=== PATIENT | female | born 1950 | race African-American/Black ===

== ENCOUNTER 2020-10-13 07:02 | Inpatient (IN) | payer OTHER, MEDICAID ==
[~2020-10-13] VITALS: Ht 156.2 cm; Wt 73.0 kg
[2020-10-13] MEDS ORDERED: SODIUM CHLORIDE 0.9% 1,000 ML IV ONE (07:45)
[2020-10-13 10:12] LABS: BASOPHILS % 0.2 % (0.0-2.0); EOSINOPHILS % 0.4 % (0.0-5.0); HEMATOCRIT. 39.5 % (36.0-48.0); HEMOGLOBIN. 13.1 g/dL (12.0-16.0); LYMPHOCYTES % 12.9 % (20.0-50.0); MEAN CORPUSCULAR HEMOGLOBIN 30.4 pg (28.0-32.0); MEAN CORPUSCULAR VOLUME 92.1 fL (81.0-99.0); MEAN PLATELET VOLUME 8.9 fl (7.4-10.4); MONOCYTES % 5.8 % (2.0-8.0); NEUTROPHILS % 80.7 % (40.0-76.0); PLATELET 170 x1000/uL (130-400); RED BLOOD CELL COUNT 4.29 mill/uL (4.2-5.4); RED CELL DISTRIBUTION WIDTH 14.4 % (11.6-14.6)
[2020-10-13 10:19] LABS: CHLORIDE 107 mEq/L (98-107)
[2020-10-13 10:23] LABS: ETHANOL BLOOD < 10 mg/dL
[2020-10-13 10:39] LABS: CREATINE KINASE 1131 IU/L (26-192)
[2020-10-13] MEDS ORDERED: CLONIDINE 0.1MG TABLET PO PRN (11:45)
[2020-10-13] MEDS ORDERED: GUAIFENESIN 200MG/10ML SUGAR FREE UDC PO PRN (11:45)
[2020-10-13] MEDS ORDERED: DOCUSATE SODIUM 100MG CAPSULE PO PRN (11:45)
[2020-10-13] MEDS ORDERED: IPRATROPIUM/ALBUTEROL 0.5-3(2.5)MG/3ML NEB NEB PRN (11:45)
[2020-10-13] MEDS ORDERED: ONDANSETRON HCL 4MG/2ML INJ IV PRN (11:45)
[2020-10-13] MEDS ORDERED: SODIUM CHLORIDE 0.45% 1,000 ML IV SCH (11:45)
[2020-10-13] MEDS ORDERED: DIPHENHYDRAMINE 50MG/ML VIAL IV PRN (11:45)
[2020-10-13] MEDS ORDERED: LORAZEPAM 2MG/ML CPJ IV PRN (11:45)
[2020-10-13] MEDS ORDERED: MAGNESIUM/ALUMINUM HYDROXIDE/SIMETHICONE 30ML UDC PO PRN (11:45)
[2020-10-13] MEDS ORDERED: ACETAMINOPHEN 325MG TABLET PO PRN (11:45)
[2020-10-13] MEDS ORDERED: NA PHOS,M-B/NA PHOS,DI-BA ENEMA 118ML PR PRN (12:00)
[2020-10-13 12:39] LABS: CLARITY URINE CLEAR (CLEAR); COLOR URINE YELLOW (YELLOW); KETONES URINE NEGATIVE (NEGATIVE); LEUKOCYTE ESTERASE URINE 2+ (NEGATIVE); NITRITE URINE NEGATIVE (NEGATIVE); OCCULT BLOOD URINE NEGATIVE (NEGATIVE); PH URINE 6.5 (4.5-8.0); PROTEIN URINE NEGATIVE (NEGATIVE); SPECIFIC GRAVITY URINE 1.017 (1.005-1.030); UROBILINOGEN URINE 0.2 E.U./dL (0.2-1.0)
[2020-10-13] MEDS: ENOXAPARIN 40MG/0.4ML SYR SUBCUT SCH ×2 (12:55→13:07)
[2020-10-13] MEDS: MORPHINE SULFATE 2 MG/ML CPJ (NOT FOR IM USE) IV PRN ×2 (12:56→14:59)
[2020-10-13 14:27] LABS: PROTHROMBIN TIME 10.8 sec (9.6-11.0)
[2020-10-13 14:28] LABS: D-DIMER 1.15 mg/L FEU (<0.50)
[2020-10-13 14:30] LABS: C REACTIVE PROTEIN QUANT 2.9 mg/L (0.0-3.0)
[2020-10-13] MEDS: SODIUM CHLORIDE 0.9% 1,000 ML IV SCH (16:15)
[2020-10-13] MEDS: HYDROCODONE/ACETAMINOPHEN 5/325MG TABLET PO PRN (19:16)
[2020-10-13 23:47] LABS: CHLORIDE 111 mEq/L (98-107)
[2020-10-13 23:57] LABS: CREATINE KINASE MB FRACTION 10.3 ng/mL (0.5-3.6)
[2020-10-14] MEDS: MORPHINE SULFATE 2 MG/ML CPJ (NOT FOR IM USE) IV PRN ×4 (00:34→22:24)
[2020-10-14 04:12] LABS: EOSINOPHILS % 0.8 % (0.0-5.0); HEMATOCRIT. 36.4 % (36.0-48.0); HEMOGLOBIN. 12.1 g/dL (12.0-16.0); LYMPHOCYTES % 26.4 % (20.0-50.0); MEAN CORPUSCULAR HEMOGLOBIN 30.6 pg (28.0-32.0); MEAN CORPUSCULAR VOLUME 91.7 fL (81.0-99.0); MEAN PLATELET VOLUME 9.1 fl (7.4-10.4); MONOCYTES % 10.1 % (2.0-8.0); NEUTROPHILS % 61.7 % (40.0-76.0); PLATELET 185 x1000/uL (130-400); RED BLOOD CELL COUNT 3.97 mill/uL (4.2-5.4); RED CELL DISTRIBUTION WIDTH 14.4 % (11.6-14.6)
[2020-10-14 04:14] LABS: CHLORIDE 112 mEq/L (98-107)
[2020-10-14 04:22] LABS: LDL CHOLESTEROL 154 mg/dL (5-100)
[2020-10-14 04:23] LABS: CREATINE KINASE MB FRACTION 8.2 ng/mL (0.5-3.6); HDL CHOLESTEROL 65 mg/dL (40-59)
[2020-10-14 04:24] LABS: T4 FREE 1.05 ng/dL (0.76-1.46)
[2020-10-14] MEDS: SODIUM CHLORIDE 0.9% 1,000 ML IV SCH ×2 (08:44→18:59)
[2020-10-14] MEDS ORDERED: POTASSIUM CHLORIDE 20MEQ TABLET SR PO NR (12:30)
[2020-10-15] VITALS (8 sets, daily range): BP systolic 142–176; BP diastolic 65–84
[2020-10-15 00:43] LABS: T4 FREE 1.03 ng/dL (0.76-1.46)
[2020-10-15 04:55] LABS: BASOPHILS % 0.4 % (0.0-2.0); HEMATOCRIT. 36.1 % (36.0-48.0); HEMOGLOBIN. 11.9 g/dL (12.0-16.0); LYMPHOCYTES % 20.3 % (20.0-50.0); MEAN CORPUSCULAR HEMOGLOBIN 30.2 pg (28.0-32.0); MEAN CORPUSCULAR VOLUME 91.3 fL (81.0-99.0); MEAN PLATELET VOLUME 9.1 fl (7.4-10.4); MONOCYTES % 11.3 % (2.0-8.0); PLATELET 181 x1000/uL (130-400); RED BLOOD CELL COUNT 3.95 mill/uL (4.2-5.4); RED CELL DISTRIBUTION WIDTH 14.2 % (11.6-14.6)
[2020-10-15 05:04] LABS: CHLORIDE 113 mEq/L (98-107)
[2020-10-15 05:13] LABS: CREATINE KINASE MB FRACTION 4.9 ng/mL (0.5-3.6)
[2020-10-15 05:26] LABS: CREATINE KINASE 1721 IU/L (26-192)
[2020-10-15] MEDS: MORPHINE SULFATE 2 MG/ML CPJ (NOT FOR IM USE) IV PRN ×2 (05:32→22:37)
[2020-10-15] MEDS: SODIUM CHLORIDE 0.45% 1,000 ML IV SCH ×3 (08:00→21:49)
[2020-10-15] MEDS: HYDROCODONE/ACETAMINOPHEN 5/325MG TABLET PO PRN (09:13)
[2020-10-15] MEDS: ENOXAPARIN 40MG/0.4ML SYR SUBCUT SCH (09:13)
[2020-10-15 09:44] LABS: FOLIC ACID (FOLATE) SERUM >20 ng/mL ng/mL (>5.38)
[2020-10-15 09:55] LABS: VITAMIN B12 SERUM 896 pg/mL (211-911)
[2020-10-15] MEDS: LOSARTAN POTASSIUM 25 MG TABLET PO SCH (12:45)
[2020-10-16] VITALS: BP 148/67
[2020-10-16 05:48] LABS: BASOPHILS % 0.6 % (0.0-2.0); EOSINOPHILS % 1.7 % (0.0-5.0); HEMATOCRIT. 39.8 % (36.0-48.0); HEMOGLOBIN. 13.1 g/dL (12.0-16.0); LYMPHOCYTES % 20.6 % (20.0-50.0); MEAN CORPUSCULAR HEMOGLOBIN 30.2 pg (28.0-32.0); MEAN CORPUSCULAR VOLUME 91.9 fL (81.0-99.0); MONOCYTES % 8.5 % (2.0-8.0); NEUTROPHILS % 68.6 % (40.0-76.0); RED BLOOD CELL COUNT 4.33 mill/uL (4.2-5.4); RED CELL DISTRIBUTION WIDTH 14.2 % (11.6-14.6)
[2020-10-16 05:51] LABS: CHLORIDE 109 mEq/L (98-107)
[2020-10-16 06:09] LABS: CREATINE KINASE MB FRACTION 6.4 ng/mL (0.5-3.6)
[2020-10-16 06:17] LABS: CREATINE KINASE 1273 IU/L (26-192)
[2020-10-16 08:00] VITALS: BP 174/72
[2020-10-16] MEDS: LOSARTAN POTASSIUM 25 MG TABLET PO SCH (10:04)
[2020-10-16] MEDS: ENOXAPARIN 40MG/0.4ML SYR SUBCUT SCH (10:05)
[2020-10-16] MEDS: MORPHINE SULFATE 2 MG/ML CPJ (NOT FOR IM USE) IV PRN ×4 (10:17→22:43)
[2020-10-16 10:22] LABS: PLATELET 189 x1000/uL (130-400)
[2020-10-16 12:00] VITALS: BP 132/69
[2020-10-16 16:00] VITALS: BP 145/79
[2020-10-16] MEDS: SODIUM CHLORIDE 0.45% 1,000 ML IV SCH ×3 (17:00→22:39)
[2020-10-16 21:45] VITALS: BP 140/68
[2020-10-17] VITALS: BP 140/55
[2020-10-17 04:00] VITALS: BP 142/61
[2020-10-17] MEDS: SODIUM CHLORIDE 0.45% 1,000 ML IV SCH (07:04)
[2020-10-17 08:00] VITALS: BP 136/78
[2020-10-17] MEDS ORDERED: LOSARTAN POTASSIUM 50 MG TABLET PO SCH (09:00)
[2020-10-17] MEDS: ENOXAPARIN 40MG/0.4ML SYR SUBCUT SCH (09:38)
[2020-10-17] MEDS: HYDROCODONE/ACETAMINOPHEN 5/325MG TABLET PO PRN (10:47)
[2020-10-17 12:00] VITALS: BP 128/72
[2020-10-17 16:00] VITALS: BP 130/76
[2020-10-17 16:31] VITALS: BP 142/72
== END 2020-10-17 18:27 | disposition home or self-care (01) | DRG 557 ==
LOC: ER 07:02 → MICUSO 11:27 → EDBEDREQ 11:33 → 5WST 10-15 02:14
PROVIDERS: ADMIT Internal Medicine; ATTEND Internal Medicine
DX: M62.82 Rhabdomyolysis (principal); G92 Toxic encephalopathy; E87.0 Hyperosmolality and hypernatremia; E44.0 Moderate protein-calorie malnutrition; E78.00 Pure hypercholesterolemia, unspecified; E78.5 Hyperlipidemia, unspecified; E87.6 Hypokalemia; I11.0 Hypertensive heart disease with heart failure; I34.0 Nonrheumatic mitral (valve) insufficiency; I50.9 Heart failure, unspecified; N28.9 Disorder of kidney and ureter, unspecified; Z88.8 Allergy status to other drugs, medicaments and biological substances; Z79.899 Other long term (current) drug therapy
CPT/HCPCS: 36415; 70551; 71045; 80048; 80053; 80061; 80307; 80320; 80329; 81003; 82140; 82550; 82553; 82607; 82728; 82746; 83036; 83615; 83735; 83880; 84439; 84443; 84481; 84484; 85025; 85379; 85384; 86140; 93005; 93306; 97161; 97166; 99285; C1893; J1650; J2270; J2405; J7030; G0480